=== PATIENT | female | born 1950 | race Caucasian/White ===

== ENCOUNTER 2022-02-14 10:09 | Emergency (ER) | payer OTHER ==
[2022-02-14 10:12] VITALS: TEMP 98.8; BMI 34.1
[2022-02-14 10:59] LABS: BASO % 0.2 % (0-2.0); EOS % 1.7 % (0-4.5); HEMATOCRIT 33.7 % (32.4-45.2); HEMOGLOBIN 11.5 GM/dL (10.7-15.3); LYMPH % 19.4 % (8-40); MCH 27.2 pg (25.7-33.7); MEAN PLT VOLUME 7.9 fl (7.5-11.1); MONO % 6.7 % (3.8-10.2); PLATELET COUNT 303 10^3/uL (134-434); RBC 4.21 M/mm3 (3.60-5.2); RDW 14.6 % (11.6-15.6); WHITE BLOOD COUNT 12.9 K/mm3 (4.0-10.0)
[2022-02-14 11:18] LABS: CALCIUM 9.2 mg/dL (8.5-10.1)
[2022-02-14 11:19] LABS: ALBUMIN 3.6 g/dl (3.4-5.0); BLOOD UREA NITROGEN 21.5 mg/dL (7-18)
[2022-02-14 11:22] LABS: CREATININE 1.1 mg/dL (0.55-1.3)
[2022-02-14 11:24] LABS: BILIRUBIN,TOTAL 0.4 mg/dL (0.2-1); TOT PROT 8.2 g/dl (6.4-8.2)
[2022-02-14] MEDS ORDERED: LIDOCAINE 5% TOPICAL PATCH TP ONE (12:19)
[2022-02-14] MEDS ORDERED: KETOROLAC TROMETHAMINE 30 MG/1 ML VIAL IVPUSH ONE (12:19)
[2022-02-14] MEDS ORDERED: LIDOCAINE 5% TOPICAL PATCH ONE (12:23)
[2022-02-14] MEDS ORDERED: KETOROLAC TROMETHAMINE 30 MG/1 ML VIAL ONE (12:23)
[2022-02-14 14:35] VITALS: BP 110/55; PULSE 78; RESP 16
[2022-02-14] MEDS ORDERED: LIDOCAINE PATCH REMOVAL MC SCH (22:00)
== END 2022-02-14 14:35 | disposition home or self-care (01) ==
LOC: JER 10:09
PROC: 3E0333Z Introduction of Anti-inflammatory into Peripheral Vein, Percutaneous Approach (ICD-10-PCS; principal; 2022-02-14)
DX: R07.9 Chest pain, unspecified (principal)
CPT/HCPCS: 36415; 71046-TC-FY; 80053; 82962; 84484; 85025; 93005; 93010; 99285-25

== ENCOUNTER 2023-07-31 04:19 | Day surgery (SDC) | payer MEDICARE, OTHER ==
[2023-07-29 15:22] VITALS: BMI 32.3
[2023-07-31 09:22] VITALS: RESP 18; TEMP 99.1
[2023-07-31 10:05] VITALS: BP 113/45; PULSE 61
== END 2023-07-31 10:07 | disposition home or self-care (01) ==
LOC: JASU-ENDO 04:19
PROVIDERS: ATTEND Internal Medicine Gastroenterology
PROC: 0DJD8ZZ Inspection of Lower Intestinal Tract, Via Natural or Artificial Opening Endoscopic (ICD-10-PCS; principal; 2023-07-31 09:00)
DX: Z12.11 Encounter for screening for malignant neoplasm of colon (principal); Z86.010 Personal history of colon polyps
CPT/HCPCS: 82962